=== PATIENT | female | born 1955 | race Caucasian/White ===

== ENCOUNTER 2018-02-11 09:10 | Inpatient (IN) | payer MEDICAID ==
[~2018-02-11] VITALS: Ht 162.6 cm; Wt 75.0 kg
[~2018-02-11 09:10] MED LIST: AMLO10TA PO; ASPI-1264 PO; ATOR20TA66 PO; CARV-50 PO; HYDR-4383 PO; LEVO100T PO; LISI-600 PO; METF1000 PO; OMEP-84 PO
[2018-02-11 10:13] LABS: BASOPHILS % (AUTO) 0.1 % (0-1); EOSINOPHILS % (AUTO) 0 % (0-6); HEMATOCRIT 38.5 % (35.0-45.0); HEMOGLOBIN 12.5 g/dl (12.0-16.0); LYMPHOCYTES # (AUTO) 1.1 X10'3 (1.1-4.8); LYMPHOCYTES % (AUTO) 10.8 % (21-51); MEAN CORPUSCULAR HEMOGLOBIN 27.2 PG (27.0-31.0); MEAN CORPUSCULAR HGB CONC 32.4 % (33.0-36.5); MEAN CORPUSCULAR VOLUME 83.8 FL (78-98); MEAN PLATELET VOLUME 10.5 FL (7.4-10.4); MONOCYTES % (AUTO) 10.3 % (2-12); NEUTROPHILS # (AUTO) 8.1 X10'3 (1.8-7.7); NEUTROPHILS % (AUTO) 78.8 % (42-75); PLATELET COUNT 153 X10'3 (140-440); RED BLOOD COUNT 4.59 X10'6 (4.20-5.60); RED CELL DISTRIBUTION WIDTH 14.5 % (11.5-14.5); WHITE BLOOD COUNT 10.2 X10'3 (4.5-11.0)
[2018-02-11] MEDS ORDERED: ATOR40TA PO (10:19)
--- NOTE | 2018-02-11 10:19 | NUR ---
med rec completed.
[2018-02-11 10:27] LABS: ALANINE AMINOTRANSFERASE 26 U/L (12-78); ALBUMIN 3.4 G/DL (3.4-5.0); ALBUMIN/GLOBULIN RATIO 0.9 (1.1-1.5); ALKALINE PHOSPHATASE 96 IU/L (46-116); ANION GAP 13 (8-16); ASPARTATE AMINO TRANSFERASE 35 U/L (10-37); BILIRUBIN,TOTAL 0.4 MG/DL (0.1-1.0); BLOOD UREA NITROGEN 11 MG/DL (7-18); BUN/CREATININE RATIO 14.1 (6.6-38.0); CALCIUM 8.3 MG/DL (8.5-10.1); CHLORIDE 100 MMOL/L (99-107); CREATININE 0.78 MG/DL (0.40-0.90); GLUCOSE 212 MG/DL (70-104); POTASSIUM 3.1 MMOL/L (3.5-5.1); SODIUM 141 MMOL/L (135-145); TOTAL CARBON DIOXIDE 27.9 MMOL/L (24-32); TOTAL PROTEIN 7.2 G/DL (6.4-8.2); eGFR 74 ML/MIN
[2018-02-11] MEDS ORDERED: ipratropium/albuterol 3ml nebule NEB ONE (10:30)
[2018-02-11] MEDS ORDERED: albuterol 2.5 MG/3 ML nebule NEB ONE (10:30)
[2018-02-11 10:38] LABS: PARTIAL THROMBOPLASTIN TIME 29 SECONDS (22-32); PROTHROMBIN TIME 10.4 SECONDS (9.0-12.0)
[2018-02-11 10:42] LABS: D-DIMER 0.45 MG/L FEU (0-0.50)
[2018-02-11 11:57] LABS: CLARITY,URINE CLEAR (Clear); COLOR,URINE YELLOW (Yellow); GLUCOSE, URINE 100 mg/dl (Neg); KETONES,URINE 15 mg/dl (Neg); LEUKOCYTE ESTERASE ,URINE NEGATIVE (Neg); NITRITES, URINE NEGATIVE (Neg); OCCULT BLOOD,URINE MODERATE (Neg); PROTEIN,URINE >=300 mg/dl (Neg)
[2018-02-11 12:00] LABS: UA COLLECTION TYPE VOIDED
[2018-02-11 12:22] LABS: BACTERIA,URINE 1+ /HPF (Neg); MUCUS STRANDS MANY /LPF (Neg); RBC,URINE 0-2 /HPF (0-2); SQUAMOUS EPITHELIAL CELL,UR MANY /LPF (FEW); WBC,URINE 0-4 /HPF (0-4)
[2018-02-11] MEDS: potassium 10mEq/100ml NS w/LIDOcaine (10mg/bag) IV SCH ×2 (12:23→14:30)
[2018-02-11] MEDS ORDERED: levoFLOXACIN-Levaquin 750MG/D5 150 ML IV STA (12:37)
[2018-02-11] MEDS ORDERED: methylPREDNISolone sod succ 125mg/2ml vial IV ONE (12:40)
[2018-02-11] MEDS ORDERED: normal saline 1000ml 1,000 ML IV SCH (12:42)
[2018-02-11] MEDS ORDERED: mag hydrox/Alum hydrox/simeth 30ml oral suspension PO PRN (12:45)
[2018-02-11] MEDS ORDERED: potassium Cl 40MEQ/NS 500ml 500 ML IV PRN ×2 (12:45)
[2018-02-11] MEDS ORDERED: HYDROcodone/acetaminophen 5mg/325mg tablet PO PRN (12:45)
[2018-02-11] MEDS ORDERED: ondansetron/PF 4mg/2ml inj IV PRN (12:45)
[2018-02-11] MEDS ORDERED: dextrose 50%-water 50ml dispensing syringe IV PRN ×2 (12:45)
[2018-02-11] MEDS ORDERED: potassium Cl 20 mEq SR tablet PO PRN (12:45)
[2018-02-11] MEDS ORDERED: magnesium hydroxide 30ml (MOM) UD suspension PO PRN (12:45)
[2018-02-11] MEDS ORDERED: MESSAGE TO PHARMACY PO ONE (12:45)
[2018-02-11] MEDS ORDERED: dextrose ORAL solution 15 GM/59 ML bottle PO PRN ×2 (12:45)
[2018-02-11] MEDS ORDERED: HYDROcodone/acetaminophen 10/325mg tab PO PRN (12:45)
[2018-02-11] MEDS ORDERED: glucagon, human recombinant 1mg kit SUBCUT PRN (12:45)
[2018-02-11] MEDS ORDERED: acetaminophen 325mg tablet PO PRN ×2 (12:45)
--- NOTE | 2018-02-11 13:20 | NUR ---
PT TO HAVE CTA, APPROPRIATE IV ACCESS FOR WAS NOT OBTAINED PT DIFFICULT ACCESS. MD CHAVEZ UPDATED, PICC RN TO BE CALLED AND PLACE EXTENDED LINE
[2018-02-11] MEDS ORDERED: iohexol 350MG/ML 100ml bottle IV ONE (13:53)
[2018-02-11] MEDS: albuterol 2.5 MG/3 ML nebule NEB PRN ×2 (14:09→14:13)
[2018-02-11 14:10] LABS: HEMOGLOBIN A1C 9.1 % (4.5-6.2)
[2018-02-11] MEDS: MESSAGE TO NURSING PO NR (15:00)
--- NOTE | 2018-02-11 19:00 | NUR ---
Patient is A&O x4, FREDERICK and is appropriate. Patient has family at bedside and has been admitted to the floor, but is waiting for a bed. I will continue to monitor.
[2018-02-11] MEDS: methylPREDNISolone sod succ 125mg/2ml vial IV SCH (20:09)
[2018-02-11] MEDS: carVEDilol 12.5mg tablet PO SCH (20:09)
--- NOTE | 2018-02-11 20:17 | NUR ---
Patient is resting comfortably on gurney, still waiting for a bed.
[2018-02-11] MEDS ORDERED: temazepam 15mg capsule PO PRN (21:00)
[2018-02-11 21:15] VITALS: BP 126/61
--- NOTE | 2018-02-11 21:15 | NUR ---
PATIENT ADMITTED TO ROOM 350A FROM ER FOR COPD EXACERBATION. PLACED COMFORTABLE IN BED. VITAL SIGNS TAKEN AND RECORDED.
[2018-02-11] MEDS ORDERED: normal saline 1000ml 1,000 ML IV ONE (22:35)
[2018-02-11] MEDS ORDERED: insulin Lispro (HumaLOG) vial - multi-dose SQ ONE (23:00)
[2018-02-11] MEDS: insulin glargine (Lantus) pen - multi-dose SQ SCH (23:15)
[2018-02-12] VITALS: BP 147/83
[2018-02-12] MEDS: sodium chloride 0.45% 1,000 ML IV SCH ×3 (00:17→16:01)
[2018-02-12 04:59] LABS: BASOPHILS % (AUTO) 0.1 % (0-1); EOSINOPHILS % (AUTO) 0.7 % (0-6); HEMATOCRIT 34.3 % (35.0-45.0); HEMOGLOBIN 11.1 g/dl (12.0-16.0); LYMPHOCYTES # (AUTO) 0.7 X10'3 (1.1-4.8); LYMPHOCYTES % (AUTO) 13.2 % (21-51); MEAN CORPUSCULAR HEMOGLOBIN 27.2 PG (27.0-31.0); MEAN CORPUSCULAR HGB CONC 32.5 % (33.0-36.5); MEAN CORPUSCULAR VOLUME 83.7 FL (78-98); MEAN PLATELET VOLUME 10.8 FL (7.4-10.4); MONOCYTES # (AUTO) 0.4 X10'3 (0-0.9); MONOCYTES % (AUTO) 7.2 % (2-12); NEUTROPHILS # (AUTO) 4.3 X10'3 (1.8-7.7); NEUTROPHILS % (AUTO) 78.8 % (42-75); PLATELET COUNT 122 X10'3 (140-440); RED BLOOD COUNT 4.09 X10'6 (4.20-5.60); RED CELL DISTRIBUTION WIDTH 14.6 % (11.5-14.5); WHITE BLOOD COUNT 5.5 X10'3 (4.5-11.0)
[2018-02-12 05:14] LABS: ANION GAP 13 (8-16); BLOOD UREA NITROGEN 13 MG/DL (7-18); BUN/CREATININE RATIO 22.4 (6.6-38.0); CALCIUM 7.9 MG/DL (8.5-10.1); CHLORIDE 103 MMOL/L (99-107); CREATININE 0.58 MG/DL (0.40-0.90); GLUCOSE 233 MG/DL (70-104); POTASSIUM 3.4 MMOL/L (3.5-5.1); SODIUM 141 MMOL/L (135-145); TOTAL CARBON DIOXIDE 25.1 MMOL/L (24-32); eGFR > 90 ML/MIN
--- NOTE | 2018-02-12 06:55 | NUR ---
Patient in room [facility] 346. I have received report from Alondra Cantu RN and had the opportunity to ask questions and assume patient care.
[2018-02-12 07:00] VITALS: BP 153/75
[2018-02-12 07:04] LABS: LARGE PLATELETS FEW; PLATELET ESTIMATE DECREASED
--- NOTE | 2018-02-12 07:07 | NUR ---
Problems reprioritized. Patient report given, questions answered & plan of care reviewed with LILY BRANHAM.
[2018-02-12] MEDS ORDERED: non-formulary drug (Amlodipine Besylate 1 TABLET) PO SCH (08:00)
[2018-02-12] MEDS ORDERED: non-formulary drug (Atorvastatin Calcium* (Lipitor*) 1 TAB) PO SCH (08:00)
[2018-02-12] MEDS ORDERED: non-formulary drug (Omeprazole* (Prilosec*) 20 MG) PO SCH (08:00)
[2018-02-12] MEDS: insulin Lispro (HumaLOG) vial - multi-dose SQ SCH ×4 (08:31→20:47)
[2018-02-12] MEDS: aspirin 325mg tablet PO SCH (08:33)
[2018-02-12] MEDS: atorvastatin 20mg tablet PO SCH (08:34)
[2018-02-12] MEDS: levoTHYROXINE 25mcg tablet PO SCH (08:34)
[2018-02-12] MEDS: pantoprazole 40mg Tablet.DR PO SCH (08:35)
[2018-02-12] MEDS: levoFLOXACIN-Levaquin 500mg/D5 100 ML IV SCH (08:36)
[2018-02-12] MEDS: enoxaparin 40mg/0.4ml syringe SUBCUT SCH (08:41)
[2018-02-12] MEDS: methylPREDNISolone sod succ 125mg/2ml vial IV SCH ×2 (08:43→20:51)
[2018-02-12] MEDS: lisinopril 20mg tablet PO SCH (08:48)
[2018-02-12] MEDS: potassium Cl 20 mEq SR tablet PO PRN ×3 (08:49→17:43)
[2018-02-12] MEDS: carVEDilol 12.5mg tablet PO SCH ×2 (08:49→20:50)
[2018-02-12] MEDS: amLODIPine 5mg tablet PO SCH (08:49)
[2018-02-12] MEDS: K and/or MAG REPLACEMENT MC SCH (08:50)
--- NOTE | 2018-02-12 09:06 | NUR ---
Patient in room [facility]OR[facility] 350. I have received report from Minnie BRANHAM and had the opportunity to ask questions and assume patient care.
--- NOTE | 2018-02-12 09:59 | NUR ---
Problems reprioritized. Patient report given, questions answered & plan of care reviewed with CARROL Gallegos.
[2018-02-12] MEDS: MESSAGE TO NURSING PO NR (10:00)
[2018-02-12 11:00] VITALS: BP 135/75
--- NOTE | 2018-02-12 15:02 | NUR ---
Initial: Pt admitted with COPD exacerbation although pt with no known hx of COPD per H&P. Pt with A1c 9.1 however per physical assessment pt A/O x 2, DM ed not appropriate at this time. Pt currently on CHO controlled diet with documented PO intake 100% meeting nutrient needs. LBM 02/11. No edema or wounds. Will continue to follow. Recommendations: 1) Continue with CHO controlled diet 2) Monitor appropriateness for DM edu 3) Wt per rx Addendum: 02/12/18 at [address] Amended: Links added.
[2018-02-12 18:00] VITALS: BP 155/79
--- NOTE | 2018-02-12 18:03 | NUR ---
Problems reprioritized. Patient report given, questions answered & plan of care reviewed with Evette BRANHAM.
--- NOTE | 2018-02-12 18:29 | NUR ---
Patient in room [facility] 350. I have received report from Rosy BRANHAM and had the opportunity to ask questions and assume patient care. Pt finishing dinner, sitting up in bed watching tv. No signs of distress. Will continue to monitor.
[2018-02-12] MEDS: insulin glargine (Lantus) pen - multi-dose SQ SCH (20:49)
[2018-02-12] MEDS: lactobacillus rhamnosus 10,000 MMU CELLS/CAPSULE PO SCH (20:50)
[2018-02-13] VITALS: BP 134/68
[2018-02-13] MEDS: sodium chloride 0.45% 1,000 ML IV SCH (04:57)
--- NOTE | 2018-02-13 06:24 | NUR ---
Problems reprioritized. Patient report given, questions answered & plan of care reviewed with Berenice BRANHAM.
[2018-02-13 06:54] LABS: BASOPHILS % (AUTO) 0.3 % (0-1); EOSINOPHILS # (AUTO) 0.1 X10'3 (0-0.9); EOSINOPHILS % (AUTO) 1.3 % (0-6); HEMATOCRIT 35.2 % (35.0-45.0); HEMOGLOBIN 11.4 g/dl (12.0-16.0); LYMPHOCYTES # (AUTO) 0.8 X10'3 (1.1-4.8); LYMPHOCYTES % (AUTO) 10.9 % (21-51); MEAN CORPUSCULAR HEMOGLOBIN 27.1 PG (27.0-31.0); MEAN CORPUSCULAR HGB CONC 32.3 % (33.0-36.5); MEAN PLATELET VOLUME 11.1 FL (7.4-10.4); MONOCYTES # (AUTO) 0.2 X10'3 (0-0.9); MONOCYTES % (AUTO) 3.2 % (2-12); NEUTROPHILS # (AUTO) 5.9 X10'3 (1.8-7.7); NEUTROPHILS % (AUTO) 84.3 % (42-75); PLATELET COUNT 118 X10'3 (140-440); RED CELL DISTRIBUTION WIDTH 14.7 % (11.5-14.5); WHITE BLOOD COUNT 6.9 X10'3 (4.5-11.0)
[2018-02-13 07:30] VITALS: BP 138/78
[2018-02-13] MEDS: albuterol 2.5 MG/3 ML nebule NEB PRN (07:30)
[2018-02-13] MEDS: K and/or MAG REPLACEMENT MC SCH (08:00)
[2018-02-13 08:20] LABS: LARGE PLATELETS FEW; PLATELET ESTIMATE DECREASED
[2018-02-13 08:41] LABS: ALBUMIN 2.9 G/DL (3.4-5.0); BLOOD UREA NITROGEN 17 MG/DL (7-18); BUN/CREATININE RATIO 24.6 (6.6-38.0); CREATININE 0.69 MG/DL (0.40-0.90); GLUCOSE 278 MG/DL (70-104); eGFR 86 ML/MIN
[2018-02-13 08:50] LABS: CHLORIDE 104 MMOL/L (99-107); POTASSIUM 3.8 MMOL/L (3.5-5.1); SODIUM 142 MMOL/L (135-145)
[2018-02-13 08:56] LABS: ANION GAP 11 (8-16); TOTAL CARBON DIOXIDE 27.5 MMOL/L (24-32)
[2018-02-13] MEDS: levoFLOXACIN-Levaquin 500mg/D5 100 ML IV SCH (09:31)
[2018-02-13] MEDS: methylPREDNISolone sod succ 125mg/2ml vial IV SCH ×2 (09:31→19:20)
[2018-02-13] MEDS: enoxaparin 40mg/0.4ml syringe SUBCUT SCH (09:31)
[2018-02-13] MEDS: levoTHYROXINE 25mcg tablet PO SCH (09:32)
[2018-02-13] MEDS: amLODIPine 5mg tablet PO SCH (09:32)
[2018-02-13] MEDS: aspirin 325mg tablet PO SCH (09:32)
[2018-02-13] MEDS: lactobacillus rhamnosus 10,000 MMU CELLS/CAPSULE PO SCH ×2 (09:32→19:19)
[2018-02-13] MEDS: pantoprazole 40mg Tablet.DR PO SCH (09:33)
[2018-02-13] MEDS: lisinopril 20mg tablet PO SCH (09:33)
[2018-02-13] MEDS: carVEDilol 12.5mg tablet PO SCH ×2 (09:33→19:25)
[2018-02-13] MEDS: atorvastatin 20mg tablet PO SCH (09:33)
[2018-02-13] MEDS: insulin Lispro (HumaLOG) vial - multi-dose SQ SCH ×4 (09:50→21:42)
[2018-02-13] MEDS: MESSAGE TO NURSING PO NR (10:49)
[2018-02-13 11:17] VITALS: BP 140/77
--- NOTE | 2018-02-13 12:10 | NUR ---
ss met w/pt and engaged her in completing an IH[employer] application, application was faxed to Callie Mcmanus [facility].
[2018-02-13] MEDS: furosemide 20 MG/2 ML vial IV SCH ×2 (14:13→19:18)
[2018-02-13] MEDS: nicotine 21mg patch - 24 hr TD SCH (14:14)
[2018-02-13 18:00] VITALS: BP 165/83
--- NOTE | 2018-02-13 18:24 | NUR ---
Problems reprioritized. Patient report given, Evette BRANHAM questions answered & plan of care reviewed with . Patient in bed talking to neighbor
--- NOTE | 2018-02-13 19:07 | NUR ---
Patient in room [facility] 350. I have received report from Berenice BRANHAM and had the opportunity to ask questions and assume patient care.
[2018-02-13] MEDS: insulin glargine (Lantus) pen - multi-dose SQ SCH (21:46)
[2018-02-14] VITALS: BP 131/84
[2018-02-14 06:16] LABS: ALBUMIN 3.1 G/DL (3.4-5.0); ANION GAP 10 (8-16); BLOOD UREA NITROGEN 24 MG/DL (7-18); BUN/CREATININE RATIO 34.3 (6.6-38.0); CALCIUM 8.1 MG/DL (8.5-10.1); CHLORIDE 100 MMOL/L (99-107); GLUCOSE 263 MG/DL (70-104); POTASSIUM 3.2 MMOL/L (3.5-5.1); SODIUM 140 MMOL/L (135-145); TOTAL CARBON DIOXIDE 30.3 MMOL/L (24-32); eGFR 84 ML/MIN
[2018-02-14 06:19] LABS: BASOPHILS % (AUTO) 0.1 % (0-1); EOSINOPHILS % (AUTO) 0.1 % (0-6); HEMATOCRIT 36.4 % (35.0-45.0); HEMOGLOBIN 12.1 g/dl (12.0-16.0); LYMPHOCYTES # (AUTO) 1.1 X10'3 (1.1-4.8); LYMPHOCYTES % (AUTO) 13.2 % (21-51); MEAN CORPUSCULAR HGB CONC 33.2 % (33.0-36.5); MEAN CORPUSCULAR VOLUME 84.4 FL (78-98); MEAN PLATELET VOLUME 11.8 FL (7.4-10.4); MONOCYTES # (AUTO) 0.4 X10'3 (0-0.9); MONOCYTES % (AUTO) 4.4 % (2-12); NEUTROPHILS # (AUTO) 6.8 X10'3 (1.8-7.7); NEUTROPHILS % (AUTO) 82.2 % (42-75); PLATELET COUNT 121 X10'3 (140-440); RED BLOOD COUNT 4.31 X10'6 (4.20-5.60); RED CELL DISTRIBUTION WIDTH 13.3 % (11.5-14.5); WHITE BLOOD COUNT 8.3 X10'3 (4.5-11.0)
--- NOTE | 2018-02-14 06:30 | NUR ---
Patient in room [facility]OR[facility] 350. I have received report from CARROL Alas and had the opportunity to ask questions and assume patient care.
[2018-02-14 07:00] VITALS: BP 132/70
--- NOTE | 2018-02-14 07:04 | NUR ---
Problems reprioritized. Patient report given, questions answered & plan of care reviewed with Vania RN.
[2018-02-14] MEDS: methylPREDNISolone sod succ 125mg/2ml vial IV SCH ×2 (08:44→19:18)
[2018-02-14] MEDS: nicotine 21mg patch - 24 hr TD SCH (08:44)
[2018-02-14] MEDS: carVEDilol 12.5mg tablet PO SCH ×2 (08:45→19:12)
[2018-02-14] MEDS: furosemide 20 MG/2 ML vial IV SCH ×2 (08:45→19:12)
[2018-02-14] MEDS: enoxaparin 40mg/0.4ml syringe SUBCUT SCH (08:45)
[2018-02-14] MEDS: atorvastatin 20mg tablet PO SCH (08:45)
[2018-02-14] MEDS: levoTHYROXINE 25mcg tablet PO SCH (08:45)
[2018-02-14] MEDS: lactobacillus rhamnosus 10,000 MMU CELLS/CAPSULE PO SCH ×2 (08:45→19:12)
[2018-02-14] MEDS: potassium Cl 20 mEq SR tablet PO PRN ×3 (08:46→17:38)
[2018-02-14] MEDS: lisinopril 20mg tablet PO SCH (08:46)
[2018-02-14] MEDS: aspirin 325mg tablet PO SCH (08:46)
[2018-02-14] MEDS: pantoprazole 40mg Tablet.DR PO SCH (08:48)
[2018-02-14] MEDS: amLODIPine 5mg tablet PO SCH (08:51)
[2018-02-14] MEDS: K and/or MAG REPLACEMENT MC SCH (08:52)
[2018-02-14] MEDS: insulin Lispro (HumaLOG) vial - multi-dose SQ SCH ×3 (09:05→19:10)
[2018-02-14 11:00] VITALS: BP 140/85
[2018-02-14] MEDS: levoFLOXACIN 500mg tablet PO SCH (11:36)
[2018-02-14] MEDS ORDERED: potassium Cl 40MEQ/NS 500ml 500 ML IV PRN ×2 (12:50)
[2018-02-14] MEDS ORDERED: magnesium 2GM in 50ml NS 50 ML IV PRN (12:50)
[2018-02-14] MEDS ORDERED: magnesium Cl slow-release 64mg tablet PO PRN (12:50)
[2018-02-14] MEDS ORDERED: magnesium 4gm in 100ml NS 100 ML IV PRN (12:50)
[2018-02-14] MEDS ORDERED: potassium Cl 20 mEq SR tablet PO PRN (12:50)
[2018-02-14 18:00] VITALS: BP 122/60
--- NOTE | 2018-02-14 18:45 | NUR ---
Problems reprioritized. Patient report given, questions answered & plan of care reviewed with CARROL Alas.
[2018-02-14] MEDS: insulin glargine (Lantus) pen - multi-dose SQ SCH (21:18)
[2018-02-15] VITALS: BP 128/75
[2018-02-15 05:25] LABS: BASOPHILS % (AUTO) 0.1 % (0-1); EOSINOPHILS % (AUTO) 0 % (0-6); HEMATOCRIT 36.9 % (35.0-45.0); HEMOGLOBIN 12.3 g/dl (12.0-16.0); LYMPHOCYTES # (AUTO) 1.2 X10'3 (1.1-4.8); LYMPHOCYTES % (AUTO) 13.8 % (21-51); MEAN CORPUSCULAR HEMOGLOBIN 27.9 PG (27.0-31.0); MEAN CORPUSCULAR HGB CONC 33.2 % (33.0-36.5); MEAN PLATELET VOLUME 12.4 FL (7.4-10.4); MONOCYTES # (AUTO) 0.4 X10'3 (0-0.9); MONOCYTES % (AUTO) 4.9 % (2-12); NEUTROPHILS % (AUTO) 81.2 % (42-75); PLATELET COUNT 123 X10'3 (140-440); RED BLOOD COUNT 4.39 X10'6 (4.20-5.60); RED CELL DISTRIBUTION WIDTH 13.3 % (11.5-14.5); WHITE BLOOD COUNT 8.6 X10'3 (4.5-11.0)
[2018-02-15 05:45] LABS: ANION GAP 10 (8-16); BLOOD UREA NITROGEN 24 MG/DL (7-18); BUN/CREATININE RATIO 37.5 (6.6-38.0); CALCIUM 8.1 MG/DL (8.5-10.1); CHLORIDE 102 MMOL/L (99-107); CREATININE 0.64 MG/DL (0.40-0.90); GLUCOSE 207 MG/DL (70-104); POTASSIUM 3.7 MMOL/L (3.5-5.1); SODIUM 141 MMOL/L (135-145); TOTAL CARBON DIOXIDE 28.8 MMOL/L (24-32); eGFR > 90 ML/MIN
[2018-02-15 06:30] VITALS: BP 141/70
--- NOTE | 2018-02-15 06:30 | NUR ---
Patient in room [facility]OR[facility] 347. I have received report from CARROL Alas and had the opportunity to ask questions and assume patient care.
--- NOTE | 2018-02-15 06:48 | NUR ---
Problems reprioritized. Patient report given, questions answered & plan of care reviewed with Vania RN.
[2018-02-15] MEDS: K and/or MAG REPLACEMENT MC SCH (06:53)
[2018-02-15] MEDS: levoTHYROXINE 25mcg tablet PO SCH (07:17)
[2018-02-15] MEDS: enoxaparin 40mg/0.4ml syringe SUBCUT SCH (07:17)
[2018-02-15] MEDS: lisinopril 20mg tablet PO SCH (07:18)
[2018-02-15] MEDS: amLODIPine 5mg tablet PO SCH (07:18)
[2018-02-15] MEDS: atorvastatin 20mg tablet PO SCH (07:18)
[2018-02-15] MEDS: furosemide 20 MG/2 ML vial IV SCH ×2 (07:18→21:56)
[2018-02-15] MEDS: methylPREDNISolone sod succ 125mg/2ml vial IV SCH ×2 (07:18→21:56)
[2018-02-15] MEDS: aspirin 325mg tablet PO SCH (07:19)
[2018-02-15] MEDS: carVEDilol 12.5mg tablet PO SCH ×2 (07:19→21:56)
[2018-02-15] MEDS: nicotine 21mg patch - 24 hr TD SCH (07:19)
[2018-02-15] MEDS: lactobacillus rhamnosus 10,000 MMU CELLS/CAPSULE PO SCH ×2 (07:19→21:56)
[2018-02-15] MEDS: pantoprazole 40mg Tablet.DR PO SCH (07:19)
[2018-02-15] MEDS: insulin Lispro (HumaLOG) vial - multi-dose SQ SCH ×3 (09:02→18:47)
[2018-02-15 11:00] VITALS: BP 134/82
[2018-02-15] MEDS: levoFLOXACIN 500mg tablet PO SCH (11:18)
--- NOTE | 2018-02-15 18:05 | NUR ---
Problems reprioritized. Patient report given, questions answered & plan of care reviewed with CARROL Forbes.
--- NOTE | 2018-02-15 18:30 | NUR ---
Patient in room [facility]OR[facility] 347. I have received report from BRADEN and had the opportunity to ask questions and assume patient care.
[2018-02-15 18:45] VITALS: BP 111/72
[2018-02-15] MEDS: insulin glargine (Lantus) pen - multi-dose SQ SCH (21:55)
[2018-02-15 23:30] VITALS: BP 107/69
[2018-02-16 05:30] LABS: BASOPHILS % (AUTO) 0.1 % (0-1); EOSINOPHILS % (AUTO) 0 % (0-6); HEMATOCRIT 36.8 % (35.0-45.0); HEMOGLOBIN 12.5 g/dl (12.0-16.0); LYMPHOCYTES # (AUTO) 1.2 X10'3 (1.1-4.8); LYMPHOCYTES % (AUTO) 12.9 % (21-51); MEAN CORPUSCULAR HEMOGLOBIN 28.6 PG (27.0-31.0); MEAN CORPUSCULAR HGB CONC 33.8 % (33.0-36.5); MEAN CORPUSCULAR VOLUME 84.4 FL (78-98); MEAN PLATELET VOLUME 12.4 FL (7.4-10.4); MONOCYTES # (AUTO) 0.5 X10'3 (0-0.9); MONOCYTES % (AUTO) 5.2 % (2-12); NEUTROPHILS # (AUTO) 7.8 X10'3 (1.8-7.7); NEUTROPHILS % (AUTO) 81.8 % (42-75); PLATELET COUNT 111 X10'3 (140-440); RED BLOOD COUNT 4.36 X10'6 (4.20-5.60); RED CELL DISTRIBUTION WIDTH 13.2 % (11.5-14.5); WHITE BLOOD COUNT 9.5 X10'3 (4.5-11.0)
[2018-02-16 05:55] LABS: ALBUMIN 2.9 G/DL (3.4-5.0); ANION GAP 9 (8-16); BLOOD UREA NITROGEN 30 MG/DL (7-18); CALCIUM 8.2 MG/DL (8.5-10.1); CHLORIDE 99 MMOL/L (99-107); CREATININE 0.81 MG/DL (0.40-0.90); GLUCOSE 321 MG/DL (70-104); POTASSIUM 3.9 MMOL/L (3.5-5.1); SODIUM 138 MMOL/L (135-145); TOTAL CARBON DIOXIDE 30.2 MMOL/L (24-32); eGFR 71 ML/MIN
--- NOTE | 2018-02-16 06:26 | NUR ---
Problems reprioritized. Patient report given, questions answered & plan of care reviewed with DOLLY.
[2018-02-16] MEDS: K and/or MAG REPLACEMENT MC SCH (06:50)
[2018-02-16 07:00] VITALS: BP 160/85
[2018-02-16] MEDS: carVEDilol 12.5mg tablet PO SCH (08:44)
[2018-02-16] MEDS: lactobacillus rhamnosus 10,000 MMU CELLS/CAPSULE PO SCH (08:45)
[2018-02-16] MEDS: atorvastatin 20mg tablet PO SCH (08:45)
[2018-02-16] MEDS: levoTHYROXINE 25mcg tablet PO SCH (08:45)
[2018-02-16] MEDS: aspirin 325mg tablet PO SCH (08:46)
[2018-02-16] MEDS: methylPREDNISolone sod succ 125mg/2ml vial IV SCH (08:46)
[2018-02-16] MEDS: amLODIPine 5mg tablet PO SCH (08:46)
[2018-02-16] MEDS: lisinopril 20mg tablet PO SCH (08:46)
[2018-02-16] MEDS: furosemide 20 MG/2 ML vial IV SCH (08:46)
[2018-02-16] MEDS: nicotine 21mg patch - 24 hr TD SCH (08:47)
[2018-02-16] MEDS: pantoprazole 40mg Tablet.DR PO SCH (08:51)
[2018-02-16] MEDS: enoxaparin 40mg/0.4ml syringe SUBCUT SCH (08:56)
[2018-02-16] MEDS: insulin Lispro (HumaLOG) vial - multi-dose SQ SCH (09:04)
[2018-02-16 09:11] LABS: ALBUMIN 3.1 G/DL (3.4-5.0); ANION GAP 9 (8-16); BLOOD UREA NITROGEN 28 MG/DL (7-18); BUN/CREATININE RATIO 30.4 (6.6-38.0); CALCIUM 8.5 MG/DL (8.5-10.1); CHLORIDE 98 MMOL/L (99-107); CREATININE 0.92 MG/DL (0.40-0.90); GLUCOSE 309 MG/DL (70-104); POTASSIUM 4.1 MMOL/L (3.5-5.1); SODIUM 140 MMOL/L (135-145); TOTAL CARBON DIOXIDE 32.7 MMOL/L (24-32); eGFR 61 ML/MIN
[2018-02-16] MEDS ORDERED: FURO-150 PO (10:18)
[2018-02-16] MEDS ORDERED: NICO-687 TD (10:18)
[2018-02-16] MEDS ORDERED: LEVO500T89 PO (10:18)
[2018-02-16 11:00] VITALS: BP 124/73
[2018-02-16] MEDS: levoFLOXACIN 500mg tablet PO SCH ×2 (11:00→11:08)
--- NOTE | 2018-02-16 11:34 | NUR ---
PT DISCHARGED IN STABLE CONDITION. LEFT FACILITY IN PRIVATE VEHICLE WITH SON. IV DC CANULA INTACT. ALL BELONGINGS IN HAND, RX CALLED INTO [facility]. FOLLOW UP INSTRUCTIONS GIVEN, ALL QUESTIONS ANSWERED. Addendum: 02/16/18 at 1135 by Madie Horvath RN Amended: Links added.
--- NOTE | 2018-02-18 09:18 | NUR ---
Pt. d/c'd home w/HH, ss referral closed.
== END 2018-02-16 11:30 | disposition home health service (06) | DRG 140 ==
LOC: ER 09:10 → ED HOLD 12:42 → SUR 3N 21:10
PROVIDERS: ADMIT Hospitalist; ATTEND Internal Medicine
PROC: B32T1ZZ Computerized Tomography (CT Scan) of Left Pulmonary Artery using Low Osmolar Contrast (ICD-10-PCS; principal; 2018-02-11)
PROC: B3201ZZ Computerized Tomography (CT Scan) of Thoracic Aorta using Low Osmolar Contrast (ICD-10-PCS; 2018-02-11)
PROC: B32S1ZZ Computerized Tomography (CT Scan) of Right Pulmonary Artery using Low Osmolar Contrast (ICD-10-PCS; 2018-02-11)
DX: J44.0 Chronic obstructive pulmonary disease with (acute) lower respiratory infection (principal); J96.21 Acute and chronic respiratory failure with hypoxia; I26.09 Other pulmonary embolism with acute cor pulmonale; J44.1 Chronic obstructive pulmonary disease with (acute) exacerbation; J20.9 Acute bronchitis, unspecified; I24.8 Other forms of acute ischemic heart disease; E03.9 Hypothyroidism, unspecified; F32.9 Major depressive disorder, single episode, unspecified; I25.10 Atherosclerotic heart disease of native coronary artery without angina pectoris; E11.9 Type 2 diabetes mellitus without complications; I10 Essential (primary) hypertension; F17.210 Nicotine dependence, cigarettes, uncomplicated; E87.6 Hypokalemia; E78.5 Hyperlipidemia, unspecified; Z95.5 Presence of coronary angioplasty implant and graft; Z79.82 Long term (current) use of aspirin; Z79.899 Other long term (current) drug therapy; Z79.84 Long term (current) use of oral hypoglycemic drugs
CPT/HCPCS: 36415; 71045; 71275; 80048; 80053; 81001; 82947; 82948; 83036; 83605; 83880; 84145; 84443; 84484; 85025; 85379; 85610; 85730; 87040; 87070; 93005; 93306; 94640; 94760; 97161; 97530; 99285; G0378; J1650; J1815; J1940; J1956; J2930; J3480; J7030; Q9967

== ENCOUNTER 2019-08-07 08:18 | Emergency (ER) | payer MEDICARE, MEDICAID ==
[~2019-08-07] VITALS: Ht 160 cm; Wt 78.6 kg
[~2019-08-07 08:18] MED LIST changes: -ATOR20TA66 PO; +ATOR40TA PO; +FURO-150 PO; +LEVO500T89 PO; +NICO-687 TD
[2019-08-07 08:28] VITALS: BP 150/83
== END 2019-08-07 09:28 | disposition home or self-care (01) ==
LOC: ER 08:18
DX: S93.602A Unspecified sprain of left foot, initial encounter (principal); M79.671 Pain in right foot; R20.0 Anesthesia of skin; I25.10 Atherosclerotic heart disease of native coronary artery without angina pectoris; E03.9 Hypothyroidism, unspecified; F32.9 Major depressive disorder, single episode, unspecified; F17.290 Nicotine dependence, other tobacco product, uncomplicated; Z98.890 Other specified postprocedural states; Z79.82 Long term (current) use of aspirin; Z79.2 Long term (current) use of antibiotics; Z79.899 Other long term (current) drug therapy; W18.39XA Other fall on same level, initial encounter; Y93.89 Activity, other specified; Y92.098 Other place in other non-institutional residence as the place of occurrence of the external cause; Y99.8 Other external cause status
CPT/HCPCS: 73630; 99284; 99406

== ENCOUNTER 2024-06-28 08:24 | Day surgery (SDC) | payer MEDICARE, MEDICAID ==
--- NOTE | 2024-06-23 13:34 | ELECTROCARDIOGRAPH REPORT ---
[facility] Test Date: 2024-06-23 Test Time: 13:31:10 Pat Name: DILIP BOYCE Department: [facility]-PRE-OP Patient ID: [id number] Room: Gender: F Stroboroma Operator: [id number] : 1955 Requested By: PATITO BRUNNER Order Number: [id number] Reading MD: Dr. ROJAS Perera Measurements Intervals [place] Rate: 71 P: 60 CO: 177 QRS: -48 QRSD: 87 T: 83 QT: 376 QTc: 409 Interpretive Statements Sinus rhythm Probable left atrial enlargement Inferior infarct, old Anterior infarct, old Electronically Signed On 06-23-2024 17:37:[address] ROJAS Perera Please click the below link to view image of tracing.
[2024-06-23 13:49] LABS: BASOPHILS # (AUTO) 0.1 X10'3 (0-0.2); BASOPHILS % (AUTO) 0.7 % (0-1); EOSINOPHILS # (AUTO) 0.2 X10'3 (0-0.9); EOSINOPHILS % (AUTO) 1.4 % (0-6); LYMPHOCYTES % (AUTO) 16.9 % (21-51); MEAN CORPUSCULAR HEMOGLOBIN 30.2 PG (27.0-31.0); MEAN CORPUSCULAR HGB CONC 32.8 g/dL (33.0-36.5); MEAN CORPUSCULAR VOLUME 91.9 FL (78-98); MEAN PLATELET VOLUME 10.8 FL (7.4-10.4); MONOCYTES # (AUTO) 1.1 X10'3 (0-0.9); MONOCYTES % (AUTO) 9.6 % (2-12); NEUTROPHILS # (AUTO) 8.4 X10'3 (1.8-7.7); NEUTROPHILS % (AUTO) 71.4 % (42-75); PRE OP HEMATOCRIT 34.3 % (35.0-45.0); PRE OP HEMOGLOBIN 11.3 g/dL (12.0-16.0); PRE OP PLATELET COUNT 150 X10'3 (140-440); PRE OP WHITE BLOOD COUNT 11.8 10'3 (4.8-10.8); RED BLOOD COUNT 3.73 X10'6 (4.20-5.60); RED CELL DISTRIBUTION WIDTH 13.2 % (11.5-14.5)
[2024-06-23 14:16] LABS: ALBUMIN 3.7 G/DL (3.4-5.0); ALBUMIN/GLOBULIN RATIO 1.3 (1.1-1.5); ALKALINE PHOSPHATASE 119 IU/L (46-116); BLOOD UREA NITROGEN 50 MG/DL (7-18); BUN/CREATININE RATIO 13.3 (10.0-20.0); CALCIUM 8.9 MG/DL (8.5-10.1); CHLORIDE 104 MMOL/L (99-107); CREATININE 3.77 MG/DL (0.40-0.90); PRE OP ANION GAP 16 (8-16); PRE OP AST 57 U/L (10-37); PRE OP BILIRUB, TOTAL 0.3 MG/DL (0.0-1.0); PRE OP GLUCOSE 104 MG/DL (70-104); PRE OP POTASSIUM 5.9 MMOL/L (3.4-5.1); PRE OP SODIUM 139 MMOL/L (135-145); TOTAL CARBON DIOXIDE 19.2 MMOL/L (24-32); TOTAL PROTEIN 6.6 G/DL (6.4-8.2); eGFR 12 ML/MIN
[2024-06-23 15:02] LABS: PRE OP ALT 154 U/L (30-65)
[~2024-06-28] VITALS: Ht 160 cm; Wt 66.7 kg
[~2024-06-28 08:24] MED LIST changes: +ASPI-1071 PO; -ASPI-1264 PO; -ATOR40TA PO; +BUPIVAcaine/PF 2.5mg/ml (0.25%) 10ml vial ONE; +BUPR-726 PO; +CELE-127 PO; +DULO30CA52 PO; +FERR325T29 PO; -FURO-150 PO; -HYDR-4383 PO; -LEVO100T PO; -LEVO500T89 PO; +LEVO50TA8 PO; +LIDOcaine 2% (20mg/ml) 5ml vial ONE; -LISI-600 PO; +METF-438 PO; -METF1000 PO; -NICO-687 TD; +ROSU40TA89 PO; +TIRZ2.5P SQ; +VARE1TAB24 PO; +ringers solution, lacted 1,000 ML IV SCH
[2024-06-28] MEDS: ceFAZolin 2gm in dextrose, iso 50 ML IV ONE (08:46)
[2024-06-28 08:54] VITALS: RESP 15; O2SAT 98
[2024-06-28] MEDS: famotidine 20mg tablet PO ONE (08:58)
[2024-06-28 09:26] LABS: ISTAT HGB 11.2 g/dl (12.0-16.0); ISTAT IONIZED CALCIUM 1.31 mmol/L (1.03-1.32); ISTAT K 5.7 mmol/L (3.5-5.1); POC BUN/CREATININE RATIO 11.5 (6.6-38.0)
[2024-06-28 10:01] VITALS: BP 96/53; PULSE 65; RESP 16; TEMP 95.9; O2SAT 94
[2024-06-28] MEDS ORDERED: labetalol 20mg/4ml (5mg/ml) syringe IV PRN (10:35)
[2024-06-28] MEDS ORDERED: morphine 4 MG/ML inj SYRINge IV PRN (10:35)
[2024-06-28] MEDS ORDERED: hydrALAZINE 20mg/ml inj. IV PRN (10:35)
[2024-06-28] MEDS ORDERED: ondansetron/PF 4mg/2ml inj IV PRN (10:35)
[2024-06-28] MEDS ORDERED: ringers solution, lacted 1,000 ML IV SCH (10:35)
[2024-06-28] MEDS ORDERED: meperidine/PF 25mg/ml syringe IV PRN (10:35)
[2024-06-28] MEDS ORDERED: morphine 2 MG/ML inj. syringe IV PRN (10:35)
[2024-06-28] MEDS ORDERED: proCHLORperazine 10 MG/2 ml inj IV PRN (10:35)
[2024-06-28] MEDS ORDERED: HYDROmorphone/PF 0.2 MG/ML SYRINGE IV PRN ×2 (10:35)
[2024-06-28] MEDS ORDERED: BUPIVAcaine/PF 2.5mg/ml (0.25%) 10ml vial ONE (11:40)
[2024-06-28] MEDS ORDERED: LIDOcaine 2% (20mg/ml) 5ml vial ONE (11:40)
[2024-06-28] MEDS: LIDOcaine 2% (20mg/ml) 5ml vial SQ ONE (11:50)
[2024-06-28] MEDS ORDERED: fentaNYL/PF 50MCG/1 ML 2ML syringe ONE (11:57)
[2024-06-28] MEDS ORDERED: propofol inj 0 ML IV ONE (12:00)
[2024-06-28] MEDS ORDERED: midazolam 1 mg/ML 2ml injection ONE (12:00)
[2024-06-28] MEDS ORDERED: propofol inj 20 ML IV ONE (12:13)
[2024-06-28 12:20] VITALS: BP 90/57; PULSE 99; RESP 16; O2SAT 100
[2024-06-28 12:30] VITALS: BP 98/54; PULSE 73; RESP 15; O2SAT 98
[2024-06-28 12:40] VITALS: BP 108/60; PULSE 69; RESP 13; O2SAT 99
[2024-06-28 12:50] VITALS: BP 107/61; PULSE 75; RESP 14; O2SAT 98
--- NOTE | 2024-06-28 15:56 | OPERATIVE REPORT ---
Operative Report Providers to ~ Date of Procedure: June 28, 2024 Pre-Operative Diagnosis: Right wrist carpal tunnel syndrome Post-Operative Diagnosis SAME as PRE-Op Procedure Performed Right wrist open carpal tunnel release Surgeon: Michel Gonzalez MD Civil Technician None Anesthesiologist: Brody Aldana Type of Anesthesia: Regional (Local anesthetic) Findings: Estimated Blood Loss: None Specimen Removed: None Description of Procedure: The patient is a 68-year-old woman with right-sided carpal tunnel syndrome refractory to nonsurgical treatment. Surgery is indicated to relieve symptoms. Risks and benefits were discussed with the patient and she agreed to proceed. The arm was prepped and draped in usual manner and local anesthetic was infiltrated proximal to the wrist crease followed by elevation of the tourniquet on the forearm. A 3 cm incision was made in the palm ulnar to the thenar crease in line with the radial side of the ring finger through skin and palmar fascia. Dissection was taken down to the transverse carpal ligament which was then opened in line with the skin incision. The median nerve was protected while the ligament was divided distally to the transverse arch and proximally to the wrist crease followed by division of the forearm fascia. The nerve was decompressed and the incision was irrigated and closed with nylon suture. A sterile dressing was applied. The tourniquet was released the hand perfused well. the patient was taken to the recovery room in stable condition and tolerated the procedure well MICHEL GONZALEZ Jr., MD June 28, 2024 15:56
== END 2024-06-28 12:50 | disposition home or self-care (01) ==
LOC: PAS 08:24
PROVIDERS: ATTEND Orthopaedic Surgery Hand Surgery
DX: G56.01 Carpal tunnel syndrome, right upper limb (principal); J44.9 Chronic obstructive pulmonary disease, unspecified; E78.5 Hyperlipidemia, unspecified; E03.9 Hypothyroidism, unspecified; I10 Essential (primary) hypertension; E11.9 Type 2 diabetes mellitus without complications; M16.12 Unilateral primary osteoarthritis, left hip; M47.816 Spondylosis without myelopathy or radiculopathy, lumbar region; M51.379 Other intervertebral disc degeneration, lumbosacral region without mention of lumbar back pain or lower extremity pain; F17.210 Nicotine dependence, cigarettes, uncomplicated; K21.9 Gastro-esophageal reflux disease without esophagitis; M19.90 Unspecified osteoarthritis, unspecified site; Z79.899 Other long term (current) drug therapy; Z90.710 Acquired absence of both cervix and uterus; Z98.890 Other specified postprocedural states
CPT/HCPCS: 36415; 64721; 80047; 80053; 82948; 85025; 93005; A4215; A6258; A6449; J0665; J0690; J2003; J2250; J2704; J3010; J3490; J7030; J7040; J7120; Z7506; Z7512

== ENCOUNTER 2024-10-13 12:19 | Emergency (ER) | payer MEDICARE, MEDICAID ==
[~2024-10-13] VITALS: Ht 160 cm; Wt 62.2 kg
[~2024-10-13 12:19] MED LIST changes: -BUPIVAcaine/PF 2.5mg/ml (0.25%) 10ml vial ONE; +EMPA1TAB PO; -LIDOcaine 2% (20mg/ml) 5ml vial ONE; +LISI20TA28 PO; -METF-438 PO; -TIRZ2.5P SQ; -ringers solution, lacted 1,000 ML IV SCH
--- NOTE | 2024-10-13 12:40 | ELECTROCARDIOGRAPH REPORT ---
[facility] Test Date: 2024-10-13 Test Time: 12:38:31 Pat Name: DILIP BOYCE Department: [facility]-ER Patient ID: [facility]-[id number] Room: Gender: F Money Order Clerk: : 1955 Requested By: JOVANNI CASE Order Number: [id number] Reading MD: Measurements Intervals [place] Rate: 83 P: 63 DC: 193 QRS: -48 QRSD: 76 T: 70 QT: 342 QTc: 402 Interpretive Statements Sinus rhythm Probable left atrial enlargement Anterolateral infarct, old Please click the below link to view image of tracing.
[2024-10-13 12:47] LABS: MEAN PLATELET VOLUME 9.9 FL (7.4-10.4); RED CELL DISTRIBUTION WIDTH 15.5 % (11.5-14.5)
[2024-10-13 13:12] LABS: CREATININE 2.93 MG/DL (0.40-0.90); TOTAL CARBON DIOXIDE 24.0 MMOL/L (24-32); eCRCL 15 ML/MIN; eGFR 16 ML/MIN
--- NOTE | 2024-10-13 13:29 | Physician Documentation ---
History of Present Illness ~ General Chief Complaint: Abnormal Lab(s) Stated Complaint: ABNORMAL LABS Time Seen by MD: 13:28 Primary Medical Doctor: KRYST[facility] AT [facility] Mode of Arrival: POV History of Present Illness Initial Comments 69-year-old female, history of recent diagnosis of chronic kidney disease, who presents with abnormal labs She tells me that she has been doing well, denies any real new or different symptoms or complaints. She had outpatient laboratory testing done yesterday, with a plan to follow up with her clinical laboratory scientist Dr. Marques on October 21. She was called and told to go to the emergency department because her potassium was 6.4. She denies any chest pain, dizziness or syncope. She does tell me that her blood pressure has been lower over the past several days. She has been trying to drink plenty of fluids to stay hydrated. No fevers or infectious symptoms, no nausea vomiting or diarrhea. She did have some medication changes several months ago, but no recent changes. Medication Reconciliation Allergies: Coded Allergies: No Known Allergies (Unverified , 10/13/24) Scheduled Amlodipine Besylate (Amlodipine Besylate), 1 TABLET PO QAM, (Reported) Aspirin (Ecotrin*), 1 TAB PO DAILY, (Reported) Bupropion HCl (Bupropion Xl), 1 TAB PO QPM, (Reported) Carvedilol* (Coreg*), 1 TABLET PO BID, (Reported) Celecoxib (Celecoxib), 1 CAP PO QPM, (Reported) Duloxetine HCl (Duloxetine HCl), 2 CAP PO QPM, (Reported) Empagliflozin/Linagliptin (Glyxambi 25 mg-5 mg Tablet), 1 TAB PO DAILY Ferrous Sulfate (Ferrous Sulfate), 1 TAB PO QAM, (Reported) Levothyroxine Sodium (Levothyroxine Sodium), 1 TAB PO QAM, (Reported) Lisinopril (Lisinopril), 1 TAB PO DAILY, (Reported) Omeprazole* (Prilosec*), 20 MG PO DAILY, (Reported) Rosuvastatin Calcium (Rosuvastatin Calcium), 1 TAB PO QPM, (Reported) Sodium Zirconium Cyclosilicate (Lokelma), 1 PKT PO DAILY Varenicline Tartrate (Varenicline Tartrate), 1 TAB PO Q12H, (Reported) Past Medical History Past Medical History: Coronary Artery Disease, Bronchitis, Hypothyroidism, Depression Past Surgical History: angioplasty Other Past Surgical History: hernia repair Drug Use: none Lives In: Home Review of Systems All Other Systems at this time: Reviewed and Negative Physical Exam Physical Exam Vital Signs: Temperature: 97.3, Source: Oral, Heart Rate: 74, Respiratory Rate: 14, BP: 117/54, Pulse Oximetry: 97, Weight: 62.200 Oxygen Flow Rate: 0 Physical Exam General: This is a pleasant older woman sitting calmly in bed, family at bedside HEENT: Atraumatic, oropharynx appears dry Heart: Regular rate and rhythm, normal-appearing peripheral perfusion Lungs: Clear breath sounds bilateral, normal work of breathing, normal oxygen saturation on room air Abdomen: Soft, nondistended, nontender all quadrants Extremities: Warm and well-perfused, no significant edema Neuro: Alert and oriented Psychiatric: Calm and cooperative with exam Progress Results/Orders Results/Orders Completed Orders - JOVANNI CASE MD Cbc/Diff (10/13/24 12:32) BMP (10/13/24 12:32) Electrocardiogram (10/13/24 12:32) Normal Saline 1000ml (0.9% Sodium Chlori (10/13/24 13:45) Vital Signs 10/13/24 10/13/24 10/13/24 12:33 12:48 13:19 Temp 97.3 97.3 Pulse 76 74 Resp 16 14 B/P (MAP) 118/52 117/54 (75) Pulse Ox 98 97 O2 Flow Rate 0 0 Laboratory Tests Test 10/13/24 12:39 White Blood Count 8.7 Red Blood Count 3.86 L Hemoglobin 11.6 L Hematocrit 35.7 Mean Corpuscular Volume 92.4 Mean Corpuscular Hemoglobin 30.0 Mean Corpuscular Hemoglobin Concent 32.5 L Red Cell Distribution Width 15.5 H Platelet Count 133 L Mean Platelet Volume 9.9 Neutrophils (%) (Auto) 68.1 Lymphocytes (%) (Auto) 17.9 L Monocytes (%) (Auto) 10.1 Eosinophils (%) (Auto) 3.2 Basophils (%) (Auto) 0.7 Neutrophils # (Auto) 5.9 Lymphocytes # (Auto) 1.6 Monocytes # (Auto) 0.9 Eosinophils # (Auto) 0.3 Basophils # (Auto) 0.1 CBC Comment Sodium Level 137 Potassium Level 6.0 *H Chloride Level 106 Carbon Dioxide Level 24.0 Anion Gap 7 L Blood Urea Nitrogen 63 H Creatinine 2.93 H Estimated GFR/1.73 m2 16 BUN/Creatinine Ratio 21.5 H Glucose Level 126 H Calcium Level 9.2 Albumin 3.6 Chemistry Comments EKG/XRAY/CT/US/VASC/MRI EKG : Additional Comment I personally interpreted the EKG and this shows: Sinus rhythm, rate 83, QTC 402, there are not significantly peaked T-waves Consults/PCP Consults/PCP : Additional Comment Consult: I spoke to Dr. Marques, nephrology. He recommends starting the patient on a potassium binder and agrees with IV fluids. He will arrange follow up in clinic. Medical Decision Making Differential Diagnosis The patient presents with hyperkalemia and outpatient laboratory testing. Here in the ED she is essentially asymptomatic although she is slightly lower blood pressure than normal and could be dehydrated. Repeat labs show a potassium of 6.0 and mildly worsening kidney function. She was given IV fluids. I consulted Nephrology as above. She will be discharged with a potassium binder and outpatient follow up. Departure Time of Disposition: 13:51 Disposition: 01 HOME / SELF CARE / HOMELESS Impression: Primary Impression: Hyperkalemia Condition: Stable Discharge Instructions: Hyperkalemia, Vdat-be-Lenv Referrals: NO PRIMARY CARE PROVIDER (PCP) Prescriptions Sodium Zirconium Cyclosilicate (Lokelma) 10 Gram Powd.pack 1 PKT PO DAILY for 30 Days, #30 PKT 0 Refills Prov: JOVANNI CASE MD 10/13/24 Education Educated: Patient, Family Educated regarding: diagnosis, treatment, need for follow up Signature Scribe Signature: tressa Attestation: JOVANNI Lopez MD Oct 13, 2024 13:29
[2024-10-13] MEDS ORDERED: SODI10PO PO (13:51)
[2024-10-13] MEDS: normal saline 1000ML IV soln IVB ONE (14:03)
[2024-10-13 14:42] VITALS: BP 102/51; PULSE 76; RESP 18; TEMP 97.3; O2SAT 98
== END 2024-10-13 14:43 | disposition home or self-care (01) ==
LOC: ER 12:19
DX: E87.5 Hyperkalemia (principal); E03.9 Hypothyroidism, unspecified; I25.10 Atherosclerotic heart disease of native coronary artery without angina pectoris; I25.2 Old myocardial infarction; N18.9 Chronic kidney disease, unspecified; F32.A Depression, unspecified; Z98.890 Other specified postprocedural states; Z79.899 Other long term (current) drug therapy
CPT/HCPCS: 36415; 80048; 85025; 93005; 96360; 99284; J7030

== ENCOUNTER 2024-10-26 10:38 | Outpatient (CLI) | payer MEDICARE, MEDICAID ==
[~2024-10-26 10:38] MED LIST changes: +SODI10PO PO
--- NOTE | 2024-10-26 13:37 | RADIOLOGY REPORT ---
Exam: CT CT ABDOMEN PELVIS History: UNSPECIFIED ABDOMINAL PAIN COMPARISON: US ULTRASOUND OF ABDOMEN on DOS: 08/03/24 Technique: Multidetector spiral CT of the abdomen and pelvis was performed from lung bases to pubic symphysis. Intravenous contrast was administered during this examination. Portal venous imaging was obtained. Axial, coronal and sagittal multiplanar reformats were performed by the technologist on a separate workstation. Radiation Dose : 1. Abdomen/Pelvis: CTDIvol 11.5 mGy, DLP 552.8 mGy*cm. Findings: Lung Bases: No acute or significant lung base finding. Normal heart size. No pleural or pericardial effusion. Liver: The liver is normal in size. No focal lesions. Normal hepatic vascular enhancement. Right hepatic lobe cyst, segment 4/8 measures 2.6 cm. Multiple bilateral punctate subcentimeter hypoattenuating lesions are present likely representing cysts. Gallbladder and Biliary Tree: Unremarkable Spleen: Unremarkable Pancreas: The pancreas is normal in appearance without focal lesions or abnormal enhancement. Adrenal Glands: Unremarkable Kidneys: No hydronephrosis. Bilateral renal cysts. Bilateral punctate nonobstructing renal stones are present measuring up to 0.3 cm in the right upper pole and 0.2 cm in the left lower pole. Bladder: Unremarkable Bowel: The stomach is grossly normal in appearance. Moderate volume colonic stool. The appendix is not visualized; however, no secondary findings of acute appendicitis identified. Ascites: Absent Lymphadenopathy: No mesenteric, retroperitoneal or periportal lymphadenopathy. Abdominal Wall and Mesentery: Unremarkable. Vasculature: The visualized abdominal aorta is normal in size and caliber. There is calcified atherosclerotic plaque involving the aorta and its branches. Abdominal and pelvic vessels demonstrate normal enhancement. Pelvic Organs: Unremarkable Musculoskeletal: No aggressive focal bony lesions, acute fractures or dislocation. Degenerative changes of the spine. Lumbar spinal fixation hardware and disc spacer material at L4-L5. IMPRESSION: Moderate volume colonic stool. Punctate bilateral renal stones. Multiple hepatic and bilateral renal cysts. Radiation optimization: All CT scans at this facility use at least one of these dose optimization techniques: automated exposure control mA and/or kV adjustment per patient size (includes targeted exams where dose is matched to clinical indication) or iterative reconstruction.
== END 2024-10-26 23:59 | disposition home or self-care (01) ==
LOC: RAD 10:38
PROVIDERS: ATTEND Nurse Practitioner
DX: N20.0 Calculus of kidney (principal); N28.1 Cyst of kidney, acquired; R10.9 Unspecified abdominal pain; I70.0 Atherosclerosis of aorta; I70.8 Atherosclerosis of other arteries
CPT/HCPCS: 74176